=== PATIENT | female | born 1995 | race Caucasian/White ===

== ENCOUNTER 2018-12-30 21:15 | Emergency (ER) | payer SELFPAY ==
[2018-12-30 21:16] VITALS: BP 134/74; PULSE 88; RESP 17; TEMP 36.8; O2SAT 100; BMI 25.7
--- NOTE | 2018-12-30 22:08 | RAD_ITS ---
STUDY: X-RAY - LEFT HAND REASON FOR EXAM: Female, 23 years old. Dogbite in the fifth digit. TECHNIQUE: 3 view(s) of the hand. COMPARISON: None. FINDINGS: Normal radiocarpal articulation. Normal distal radioulnar joint. Normal visualized carpal bones. Normal carpal articulations Normal carpometacarpal articulation of the thumb. Normal second through fifth carpometacarpal joints. Normal metacarpi. Normal metacarpophalangeal joint of the thumb. Normal interphalangeal joint of the thumb. Normal proximal and distal phalanges of the thumb. Normal metacarpophalangeal joints of the second through fifth fingers. Normal proximal and distal interphalangeal joints of the second through fifth fingers. Normal phalanges of the second through fifth fingers. The soft tissue structures are unremarkable. RAD/Hand Min 3 Views IMPRESSION: Normal x-ray examination of the hand. Electronically Signed: Aris Acosta MD at 22:35 EDT Tel , Service support ,
[2018-12-30] MEDS: Diphth,Pertuss(Acell),Tet Vac 0.5 ML Vial IM (22:45)
[2018-12-30] MEDS: Doxycycline 100 MG CAPSULE PO (22:51)
--- NOTE | 2018-12-30 23:26 | ED.DCSUM_ITS ---
- ER Visit Summary Date of Service: 12/30/18 Chief Complaint: Dog bite History of Present Illness: The patient is a 23 F left fifth digit dog bite prior to arrival. Apparently her dog and her mother's dog were fighting and she tried to break up the fight. No other injury Physical Examination: Otherwise normal exam she has 3 puncture wounds around her fifth digit, flexor and extensor mechanisms are intact. There is no swelling no signs of tenosynovitis. No signs of infection. Emergency Department Course and Treatment: Patient is allergic to penicillin doxycycline was given. Wound was cleaned, soaked. I encouraged her to keep wo und clean. I will give her antibiotics for home I encouraged her to take him Discharge stable condition Impression: [Dog bite] This note was generated with [employer] dictation software. It may contain incorrect words, spelling, and punctuation that were not noted in review of the chart prior to signing ED Disposition - Plan for ED Patient: Disposition: Home or Assisted Living Instructions: ED Bite Dog Prescriptions: Doxycycline 100 mg PO BID #20 cap Referrals: Josiah Woodruff DO [NON CLINICAL AFFILIATE] - 3-5 Days
[2018-12-30 23:31] VITALS: BP 128/54; PULSE 75; RESP 18; O2SAT 96
== END 2018-12-30 23:31 | disposition home or self-care (01) ==
PROVIDERS: Emergency Provider Emergency Medicine
DX: S60.477A Other superficial bite of left little finger, initial encounter (principal); W54.0XXA Bitten by dog, initial encounter; Y93.9 Activity, unspecified; Y92.9 Unspecified place or not applicable
CPT/HCPCS: 73130; 90471; 90715; 99283